=== PATIENT | female | born 1965 | race Caucasian/White ===

== ENCOUNTER 2021-11-12 18:53 | Emergency (ER) | payer SELFPAY ==
[2021-11-12 19:23] VITALS: BP 148/98; PULSE 51; RESP 16; TEMP 36.6; O2SAT 97
== END 2021-11-12 19:58 | disposition left against medical advice (07) ==
PROVIDERS: Emergency Provider Family Medicine
DX: Z53.21 Procedure and treatment not carried out due to patient leaving prior to being seen by health care provider (principal); R11.2 Nausea with vomiting, unspecified